=== PATIENT | female | born 2000 | race Caucasian/White ===

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

== ENCOUNTER 2019-05-13 09:16 | Emergency (ER) | payer OTHER ==
[2019-05-13 09:30] VITALS: BP 135/51; PULSE 80; TEMP 98.3
[2019-05-13] MEDS ORDERED: ERYTHROMYCIN 0.5% OPHTHALMIC OINTMENT 3.5 GM TUBE OS ONE (10:19)
[2019-05-13] MEDS ORDERED: ERYTHROMYCIN 0.5% OPHTHALMIC OINTMENT 3.5 GM TUBE ONE (10:23)
--- NOTE | 2019-05-13 10:23 | PDOC ---
History of Present Illness - General Chief Complaint: Pain Stated Complaint: LT. EYE PAIN Time Seen by Provider: 05/13/19 10:15 History Source: Patient Exam Limitations: No Limitations - History of Present Illness Initial Comments: 05/13/19 13:51 c/o onset of stye to left upper eye yesterday and has worssened with swelling and pain. States has had in past , but never this large. Use Hot teabag to draw out. No drainage. Timing/Duration: 24 hours Severity: mild, moderate Associated Symptoms: reports: denies symptoms Past History - Travel Traveled outside of the country in the last 30 days: No Close contact w/someone who was outside of country & ill: No - Past Medical History Allergies/Adverse Reactions: Allergies Allergy/AdvReac Type Severity Reaction Status Date / Time No Known Allergies Allergy Verified 05/13/19 09:27 Home Medications: Ambulatory Orders NK [No Known Home Medication] 08/20/15 COPD: No - Reproductive History (#): 0 - Immunization History Immunization Up to Date: Yes - Suicide/Smoking/Psychosocial Hx Smoking History: Never smoked Have you smoked in the past 12 months: No Information on smoking cessation initiated: No Hx Alcohol Use: No Drug/Substance Use Hx: No Substance Use Type: None Review of Systems - Review of Systems Able to Perform ROS?: Yes Is the patient limited Italian proficient: Yes Constitutional: Yes: Symptoms Reported, See HPI, Malaise. No: Fever HEENTM: Yes: Symptoms Reported, See HPI, Eye Pain. No: Blurred Vision, Tearing Respiratory: Yes: See HPI. No: Cough Musculoskeletal: No: Symptoms Reported Integumentary: No: Symptoms Reported Neurological: Yes: See HPI. No: Symptoms reported, Headache All Other Systems: Reviewed and Negative *Physical Exam - Vital Signs Last Vital Signs Temp Pulse Resp BP Pulse Ox 98.3 F 80 18 135/51 L 99 05/13/19 09:27 05/13/19 09:27 05/13/19 09:27 05/13/19 09:27 05/13/19 09:27 - Physical Exam General Appearance: Yes: Nourished, Appropriately Dressed, Apparent Distress, Mild Distress HEENT: positive: LINDA, Normal ENT Inspection, TMs Normal, Pharynx Normal, Other (swelling and pain to upper left lid outer aspect, with pointing lesion to inner lateral canthus) Neck: positive: Supple. negative: Tender, Lymphadenopathy (R), Lymphadenopathy (L) Respiratory/Chest: positive: Lungs Clear, Normal Breath Sounds Medical Decision Making - Medical Decision Making 05/13/19 10:22 Stye, will treat with Erythomycin to lubrication. *DC/Admit/Observation/Transfer Diagnosis at time of Disposition: Hordeolum externum Qualifiers: Laterality: left Eyelid: upper Qualified Code(s): H00.014 - Hordeolum externum left upper eyelid - Discharge Dispostion Disposition: HOME Condition at time of disposition: Stable Decision to Admit order: No - Referrals Referrals: Gloria Begum MD [Primary Care Provider] - - Patient Instructions Printed Discharge Instructions: DI for Hordeolum Additional Instructions: Rest, avoid rubbing eyes Hot soaks to I often as possible to help draw the sterile infection to a head and allow to drain This is not generally a dangerous infection and will usually go away hot soaks Erythromycin ointment to affected eye 3 times a day until healed UseD primarily for lubricating purposE Avoid contact with others until redness and discharge is gone from eyes. Followup with ophthalmology or private physician as needed - Post Discharge Activity Forms/Work/School Notes: Back to Work
== END 2019-05-13 10:27 | disposition home or self-care (01) ==
LOC: JERFT 09:16
DX: H00.014 Hordeolum externum left upper eyelid (principal)
CPT/HCPCS: 99281-25

== ENCOUNTER 2019-07-07 16:54 | Emergency (ER) | payer OTHER ==
[2019-07-07 17:03] VITALS: BP 125/91; PULSE 84; TEMP 98.4; BMI 32.5
[2019-07-07] MEDS ORDERED: DIPHTH,PERTUSS(ACELL),TET 0.5 ML DISP.SYRIN IM ONE ×2 (17:03→18:00)
--- NOTE | 2019-07-07 17:03 | PDOC ---
Rapid Medical Evaluation Time Seen by Provider: 07/07/19 17:01 Medical Evaluation: Allergies Allergy/AdvReac Type Severity Reaction Status Date / Time No Known Allergies Allergy Verified 07/07/19 16:59 07/07/19 17:01 HPI: Bitten L hand by stray dog while feeding it PE: Puncture wounds dorsum of L hand ORDERS: Tetanus Discharge Disposition - Diagnosis Dog bite - Referrals - Patient Instructions - Post Discharge Activity
[2019-07-07] MEDS ORDERED: AMOX TR/POT CLAV 875MG/125MG TABLETS (FP) PO ONE (18:08)
[2019-07-07] MEDS ORDERED: RABIES VACCINE (PCEC)/PF 2.5 UNIT/VIAL IM ONE ×2 (18:09→18:27)
[2019-07-07] MEDS ORDERED: RABIES IMMUNE GLOBULIN 300 UNITS/1 ML VIAL IM ONE (18:09)
[2019-07-07] MEDS ORDERED: IBUPROFEN 400 MG TABLET (FP) PO ONE ×2 (18:09→18:27)
--- NOTE | 2019-07-07 18:20 | PDOC ---
History of Present Illness - General Chief Complaint: Bite Stated Complaint: DOG BITE Time Seen by Provider: 07/07/19 17:01 History Source: Patient - History of Present Illness Occurred: reports: this morning Pain Location: reports: upper extremity Past History - Past Medical History Allergies/Adverse Reactions: Allergies Allergy/AdvReac Type Severity Reaction Status Date / Time No Known Allergies Allergy Verified 07/07/19 16:59 Home Medications: Ambulatory Orders Amoxicillin/Potassium Clav [Augmentin 875-125 Tablet] 1 each PO BID #13 tablet 07/07/19 Ibuprofen [Motrin -] 600 mg PO QID #28 tablet 07/07/19 COPD: No - Reproductive History (#): 0 - Immunization History Immunization Up to Date: Yes - Suicide/Smoking/Psychosocial Hx Smoking History: Never smoked Have you smoked in the past 12 months: No Hx Alcohol Use: Yes Drug/Substance Use Hx: No Substance Use Type: None Review of Systems - Review of Systems Constitutional: No: Chills, Fever *Physical Exam - Vital Signs Last Vital Signs Temp Pulse Resp BP Pulse Ox 98.4 F 84 18 125/91 100 07/07/19 17:00 07/07/19 17:00 07/07/19 17:00 07/07/19 17:00 07/07/19 17:00 - Physical Exam General Appearance: Yes: Appropriately Dressed. No: Apparent Distress HEENT: positive: Normal Voice Neck: positive: Supple Respiratory/Chest: negative: Respiratory Distress Integumentary: positive: Dry, Warm, Other (multiple abrasions to dorsum of L hand including open wound to web space of L 3rd-4th digits, no erythema, warmth , FROMI to fingers, sensation intact) Neurologic: positive: Fully Oriented, Alert, Normal Mood/Affect ED Treatment Course - Medications Given in the ED: ED Medications Discontinued Medications Generic Name Dose Route Start Last Admin Trade Name Freq PRN Reason Stop Dose Admin Diphtheria/Tetanus/Acell Pertussis 0.5 ml 07/07/19 17:03 07/07/19 18:05 Boostrix - IM 07/07/19 17:04 0.5 ml .ONCE ONE Administration Medical Decision Making - Medical Decision Making 07/07/19 18:20 19 yo F, no sig hx, here w/ bite to L hand while feeding stray dog at 10am today. Pain to site. No f/c See exam Dog bite Stray animal Multiple abrasions to L hand w/ no e/o infection on exam, no e/o tendon injury -Betadine soak to L hand -Tetanus updated -first dose abx given here -rabies vaccination series initiated, HRIG administered to site of wound and L buttocks -local wound care w/ betadine, NS, bacitracian, xeroform, 2x2 and gauze roll -state form filled -wound check in 2 days -To return for subsequent vaccines 07/07/19 19:08 *DC/Admit/Observation/Transfer Diagnosis at time of Disposition: Dog bite Qualifiers: Encounter type: initial encounter Qualified Code(s): W54.0XXA - Bitten by dog, initial encounter - Discharge Dispostion Disposition: HOME Condition at time of disposition: Improved - Prescriptions Prescriptions: Amoxicillin/Potassium Clav [Augmentin 875-125 Tablet] 1 each PO BID #13 tablet Ibuprofen [Motrin -] 600 mg PO QID #28 tablet - Referrals Referrals: Gloria Begum MD [Primary Care Provider] - - Patient Instructions Printed Discharge Instructions: DI for Dog Bite Additional Instructions: Take antibiotics as directed Take motrin for pain Keep wound clean and dry Return for wound check in 2 days, sooner for signs of infection as discussed today Return for subsequent vaccines on July 10, and - Post Discharge Activity
[2019-07-07] MEDS ORDERED: AMOX TR/POT CLAV 875MG/125MG TABLETS (FP) ONE (18:27)
== END 2019-07-07 19:09 | disposition home or self-care (01) ==
LOC: JERFT 16:54 → JER 16:54 → JERFT 19:09
PROC: 3E0234Z Introduction of Serum, Toxoid and Vaccine into Muscle, Percutaneous Approach (ICD-10-PCS; principal; 2019-07-07)
PROC: 3E0234Z Introduction of Serum, Toxoid and Vaccine into Muscle, Percutaneous Approach (ICD-10-PCS; 2019-07-07)
PROC: 3E0234Z Introduction of Serum, Toxoid and Vaccine into Muscle, Percutaneous Approach (ICD-10-PCS; 2019-07-07)
DX: S61.452A Open bite of left hand, initial encounter (principal); W54.0XXA Bitten by dog, initial encounter; Y93.89 Activity, other specified; Y92.9 Unspecified place or not applicable
CPT/HCPCS: 90375; 90675; 90715; 99281-25

== ENCOUNTER 2020-07-03 18:20 | Emergency (ER) | payer OTHER ==
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
[2020-07-03 18:40] VITALS: BP 119/71; PULSE 111; TEMP 99; BMI 34.0
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
== END 2020-07-03 20:27 | disposition home or self-care (01) ==
LOC: JERFT 18:20 → JER 18:20 → JERFT 20:27
DX: S50.02XA Contusion of left elbow, initial encounter (principal); S60.512A Abrasion of left hand, initial encounter
CPT/HCPCS: 73070-TC-LT-FY; 73090-TC-LT-FY; 73130-TC-LT-FY; 84703; 99285-25

== ENCOUNTER 2021-08-30 13:33 | Emergency (ER) | payer OTHER ==
[2021-08-30 14:08] VITALS: BP 129/56; PULSE 60; TEMP 99.2; BMI 34.3
[2021-08-30 14:17] LABS: HCG,QUALITATIVE URINE Negative
[2021-08-30 15:20] LABS: BASO % 2.1 % (0-2.0); EOS % 0.9 % (0-4.5); HEMATOCRIT 38.5 % (32.4-45.2); HEMOGLOBIN 12.7 GM/dl (10.7-15.3); LYMPH % 31.1 % (8-40); MCH 28.5 pg (25.7-33.7); MEAN CELL VOLUME 86.4 fl (80-96); MEAN PLT VOLUME 8.9 fl (7.5-11.1); MONO % 4.3 % (3.8-10.2); NEUT % 61.6 % (42.8-82.8); PLATELET COUNT 269 10^3/uL (134-434); RBC 4.46 M/mm3 (3.60-5.2); RDW 13.3 % (11.6-15.6); WHITE BLOOD COUNT 10.3 K/mm3 (4.0-10.8)
[2021-08-30 15:27] LABS: ALBUMIN 4.2 g/dl (3.4-5.0); BILIRUBIN,TOTAL 0.7 mg/dl (0.2-1); CREATININE 0.6 mg/dl (0.55-1.3); TOT PROT 7.3 g/dl (6.4-8.2)
== END 2021-08-30 18:36 | disposition home or self-care (01) ==
LOC: FER 13:33
DX: R39.11 Hesitancy of micturition (principal)
CPT/HCPCS: 36415; 74177-TC; 80053; 81003; 84703; 85025; 86850; 86900; 86901; 87086; 99285-25

== ENCOUNTER 2022-01-28 15:01 | Emergency (ER) | payer OTHER ==
[2022-01-28 15:09] VITALS: BP 110/60; PULSE 93; TEMP 98.9; BMI 32.5
== END 2022-01-28 15:46 | disposition home or self-care (01) ==
LOC: JERFT 15:01
DX: L05.01 Pilonidal cyst with abscess (principal)
CPT/HCPCS: 99281-25

== ENCOUNTER 2022-02-02 07:13 | Emergency (ER) | payer OTHER ==
[2022-02-02 07:36] VITALS: BP 140/83; PULSE 100; TEMP 98.4; BMI 32.5
== END 2022-02-02 08:51 | disposition home or self-care (01) ==
LOC: JER 07:13
PROC: 0H98XZZ Drainage of Buttock Skin, External Approach (ICD-10-PCS; principal; 2022-02-02)
DX: L05.01 Pilonidal cyst with abscess (principal)
CPT/HCPCS: 99282-25